=== PATIENT | male | born 1930 | race Caucasian/White ===

== ENCOUNTER → 2016-12-15 | Outpatient (CLI) | payer OTHER ==
[~2016-12-15] MED LIST: ACYCLOVIR 400400 MG PO; ALLOPURINOL 30300 M2; AMARYL4 MG PO; FAMOTIDINE 40 M40 M1 PO; JANUVIA 50 MG T50 M1 PO; LISINOPRIL-HCT1 EAC1; LOPRESSOR50 PO; VYTORIN 10-201 EACH PO
== END ==
LOC: RAD 05:02
DX: R13.10 Dysphagia, unspecified (principal); K44.9 Diaphragmatic hernia without obstruction or gangrene

== ENCOUNTER → 2017-10-19 | Outpatient (CLI) | payer OTHER | LOC: SPEECH 10:29 → RAD 10:29 | DX: R13.10 Dysphagia, unspecified (principal) ==

== ENCOUNTER 2018-10-21 09:04 | Emergency (ER) | payer OTHER ==
[~2018-10-21] VITALS: Ht 172.7 cm; Wt 95.3 kg
[2018-10-21 09:51] LABS: ABSOLUTE NEUTROPHILS 7.6 thou/uL (1.4-8.2); BASOPHILS 1.4 % (0.0-2.0); EOSINOPHILS 2.4 % (0.0-3.0); HEMATOCRIT 36.9 % (42.0-52.0); HEMOGLOBIN 12.6 gm/dL (14.0-18.0); LYMPHOCYTES 11.7 % (24.0-44.0); MCH 30.4 pg (26.0-34.0); MCHC 34.2 g/dL (28.0-37.0); MCV 89.1 fL (80.0-100.0); MONOCYTES 8.9 % (1.0-8.0); PLATELET COUNT 210 thou/uL (150-400); POLYS 75.6 % (36.0-66.0); RBC 4.14 mil/uL (4.50-6.00); RDW 14.5 % (10.5-14.5)
[2018-10-21] MEDS ORDERED: FLOMAX0.4 MG PO (09:57)
[2018-10-21] MEDS ORDERED: PIOGLITAZONE15 MG (09:58)
[2018-10-21] MEDS ORDERED: LIPITOR 20 MG T20 M1 PO (09:58)
[2018-10-21 10:01] LABS: CALCIUM 9.7 mg/dL (8.5-10.1); CREATININE 1.4 mg/dL (0.7-1.3); POTASSIUM 3.8 mmol/L (3.5-5.1)
[2018-10-21 10:07] LABS: ALBUMIN 3.6 g/dL (3.4-5.0); TOTAL BILIRUBIN 0.8 mg/dL (<0.1-1.0); TOTAL PROTEIN 7.2 g/dL (6.4-8.2); URIC ACID* 5.7 mg/dL (2.6-7.2)
[2018-10-21] MEDS ORDERED: INDOMETHACIN 2525 MG PO (11:53)
[2018-10-21] MEDS ORDERED: COLCHICINE0.6 MG PO (11:53)
[2018-10-21] MEDS ORDERED: NORCO 5-325 TA1 EACH PO (11:54)
[2018-10-21 12:09] VITALS: BP 131/55
== END 2018-10-21 12:10 | disposition home or self-care (01) ==
LOC: ER 09:04
PROVIDERS: Physician Assistant
DX: M10.071 Idiopathic gout, right ankle and foot (principal); M10.072 Idiopathic gout, left ankle and foot; E11.9 Type 2 diabetes mellitus without complications; I10 Essential (primary) hypertension; E78.00 Pure hypercholesterolemia, unspecified; E78.5 Hyperlipidemia, unspecified; I25.10 Atherosclerotic heart disease of native coronary artery without angina pectoris; Z90.49 Acquired absence of other specified parts of digestive tract

== ENCOUNTER 2019-09-25 13:55 | Inpatient (IN) | payer OTHER ==
[~2019-09-25] VITALS: Ht 172.7 cm; Wt 96.2 kg
[2019-09-25 13:55] VITALS: BP 210/82
[~2019-09-25 13:55] MED LIST changes: +COLCHICINE0.6 MG PO; +FLOMAX0.4 MG PO; +INDOMETHACIN 2525 MG PO; +LIPITOR 20 MG T20 M1 PO; +NORCO 5-325 TA1 EACH PO; +PIOGLITAZONE15 MG
[2019-09-25 15:06] LABS: ANION GAP 5 mmol/L (7-16); BUN 14 mg/dL (7-18); CALCIUM 9.9 mg/dL (8.5-10.1); CHLORIDE 98 mmol/L (98-107); CO2 32 mmol/L (21-32); CREATININE 1.2 mg/dL (0.7-1.3); GLUCOSE 152 mg/dL (74-106); POTASSIUM 3.8 mmol/L (3.5-5.1); SODIUM 135 mmol/L (136-145)
[2019-09-25 15:17] LABS: ALBUMIN 3.9 g/dL (3.4-5.0); SGOT 18 U/L (15-37); SGPT 24 U/L (30-65); TOTAL BILIRUBIN 0.9 mg/dL (<0.1-1.0); TOTAL PROTEIN 7.8 g/dL (6.4-8.2); TROPONIN-I <0.06 ng/mL (<0.06)
[2019-09-25 15:23] LABS: ABSOLUTE NEUTROPHILS 8.9 thou/uL (1.4-8.2); BASOPHILS 1.5 % (0.0-2.0); HEMATOCRIT 38.9 % (42.0-52.0); HEMOGLOBIN 12.8 gm/dL (14.0-18.0); LYMPHOCYTES 9.2 % (24.0-44.0); MCHC 32.9 g/dL (28.0-37.0); MCV 88.3 fL (80.0-100.0); MONOCYTES 6.8 % (1.0-8.0); PLATELET COUNT 321 thou/uL (150-400); POLYS 80.5 % (36.0-66.0); RBC 4.41 mil/uL (4.50-6.00); RDW 14.6 % (10.5-14.5); WBC 11.1 thou/uL (4.0-11.0)
[2019-09-25 17:25] VITALS: BP 188/71
[2019-09-25 18:20] VITALS: BP 181/74
[2019-09-25 18:58] LABS: URINE BILIRUBIN NEGATIVE (Negative); URINE BLOOD NEGATIVE (Negative); URINE CLARITY CLEAR; URINE COLOR YELLOW; URINE GLUCOSE-RANDOM* NEGATIVE (Negative); URINE KETONES NEGATIVE (Negative); URINE LEUKOCYTES-REFLEX NEGATIVE (Negative); URINE NITRITE-REFLEX NEGATIVE (Negative); URINE PROTEIN (DIPSTICK) NEGATIVE (Negative); URINE UROBILINOGEN 0.2 E.U./dl (0.2-1.0)
[2019-09-25] MEDS ORDERED: PEPCID40 MG PO (19:17)
--- NOTE | 2019-09-25 19:27 | NUR ---
pt admitted from ER for SOB 1810pm, pt is A&OX3, PT is continuing o2 2L/MIN/NC, pt's vs , bs and o2sat are stable, pt has eating dinner, pt's family stay at bedside, pt's UA has sent to LAB .
[2019-09-25 19:30] VITALS: BP 178/71
[2019-09-25 23:40] VITALS: BP 161/72
--- NOTE | 2019-09-26 03:01 | NUR ---
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 BLOOD GLUCOSE 196 PT REFUSED INSULIN STATES " I NEVER TAKE SHOTS JUST PILLS" AT BEDSIDE SLEEPING,. PT SLEEPING UP IN CHAIR THROUGHOUT HOURLY ROUNDS.WILL CONITNUE WITH CURRENT PLAN OF CARE AND REPORT CHANGES.
[2019-09-26 03:45] VITALS: BP 170/71
[2019-09-26 05:24] LABS: HEMATOCRIT 35.9 % (42.0-52.0); HEMOGLOBIN 11.8 gm/dL (14.0-18.0); MCH 29.5 pg (26.0-34.0); MCHC 32.9 g/dL (28.0-37.0); MCV 89.6 fL (80.0-100.0); RBC 4.01 mil/uL (4.50-6.00); RDW 14.8 % (10.5-14.5)
[2019-09-26 05:41] LABS: CALCIUM 9.8 mg/dL (8.5-10.1); CREATININE 1.2 mg/dL (0.7-1.3); MAGNESIUM 1.8 mg/dL (1.8-2.4); POTASSIUM 3.5 mmol/L (3.5-5.1)
[2019-09-26 07:22] VITALS: BP 159/70
--- NOTE | 2019-09-26 08:07 | NUR ---
assessment: CM REVIEWED CHART AND MET WITH PATIENT AT THE BEDSIDE. PTS IS ALSO PRESENT. PT WAS ADMITTED WITH HYPERTENSIVE URGENCY/CHF EXACERBATION. PT REPORTS HE LIVES IN A HOUSE WITH HIS . PT REPORTS HAVING 2 STEPS TO ENTER AND NO STEPS HE USES ONCE INSIDE. PT REPORTS HE IS INDEPENDENT WITH ADLS AND AMBULATION. PT REPORTS HE HAS A GRAB BAR AND SHOWER CHAIR. PT REPORTS HE HAS NOT HAD HH IN THE PAST OR BEEN TO SNF. CM DISCUSSED ROLE. PT STATES HE DOES NOT HAVE OXYGEN AT HOME. PT REPORTS THAT HE DOES NOT ANTICIPATE HAVING ANY NEEDS AT DISCHARGE. PT/OT TO SEE PATIENT AND EVALS ARE PENDING. CM WILL CONTINUE TO FOLLOW TO ASSIST NEEDED.
[2019-09-26 11:24] VITALS: BP 161/65
--- NOTE | 2019-09-26 12:27 | EKG ---
[address] [address] ELECTROCARDIOGRAM REPORT Name: DOMINGO SOSA Room #: 357-P ADM IN M.R.#: [id number] Admission: 09/25/19 Attend Phys: Vivek Santos MD Discharge: Date of : 34 Report #: [id number] THIS REPORT FOR: //name// [facility] ED Test Date: 2019-09-25 Test Time: 14:23:50 Pat Name: DOMINGO SOSA Department: Room: 357 Gender: M Clinical Education Manager: [facility] : [id number] Requested By: Jennifer Yang Order Number: [id number] MD: Itz Salvador Measurements Intervals [place] Rate: 76 P: CT: QRS: 11 QRSD: 89 T: 114 QT: 365 QTc: 411 Interpretive Statements Sinus rhythm Nonspecific ST segment abnormalities Compared to ECG 05/31/2008 09:01:58 Left ventricular hypertrophy no longer present Electronically Signed On 09-26-2019 12:26:51 DENTAL PROSTHETIST by Itz Salvador [email or web address] <ELECTRONICALLY SIGNED> By: Itz Salvador MD 09/26/19 1226 1423 1423 Itz Salvador MD /BASIL
[2019-09-26] MEDS ORDERED: LASIX 40 MG TAB40 MG PO (13:00)
[2019-09-26] MEDS ORDERED: KLOR-CON 1010 MEQ PO (13:00)
[2019-09-26] MEDS ORDERED: ACETAMINOPHEN325 M1 PO (13:00)
[2019-09-26] MEDS ORDERED: BENICAR40 MG PO (13:00)
[2019-09-26] MEDS ORDERED: METOPROLOL SUCC50 MG PO (13:00)
[2019-09-26 15:20] VITALS: BP 155/61
[2019-09-26 15:45] VITALS: BP 155/61
--- NOTE | 2019-09-26 15:46 | NUR ---
ASSUMED CARE OF PT AT APPROX 0700. PT IS ALERT AND ORIENTED X4, MONITORED ON TELE AND ABLE TO MAINTAIN 02 SAT >90 ON RA. DENIES SOA AND PAIN. ASSESSMENT CHARTED. RECIEVED ORDERS FOR DC. COMPLETED DC IN COMPUTER. PT WAITING ON FAMILY TO ARRIVE FOR DC AND PATIENT WISHES I WAIT FOR DC EDUCATION AND INSTRUCTIONS UNTIL AND DAUGHTER ARRIVE. WILL CONTINUE TO MONITOR.
== END 2019-09-26 16:47 | disposition home or self-care (01) | DRG 291 ==
LOC: ER 13:55 → EROBS 16:08 → 3W 16:08 → ENTRNSPT 09-26 16:43 → 3W 09-26 16:47
PROVIDERS: Nurse Practitioner Family; ADMIT Internal Medicine
DX: I13.0 Hypertensive heart and chronic kidney disease with heart failure and stage 1 through stage 4 chronic kidney disease, or unspecified chronic kidney disease (principal); I50.33 Acute on chronic diastolic (congestive) heart failure; I16.1 Hypertensive emergency; I25.10 Atherosclerotic heart disease of native coronary artery without angina pectoris; R54 Age-related physical debility; E78.5 Hyperlipidemia, unspecified; E11.9 Type 2 diabetes mellitus without complications; E78.00 Pure hypercholesterolemia, unspecified; I16.0 Hypertensive urgency; N18.9 Chronic kidney disease, unspecified; E11.22 Type 2 diabetes mellitus with diabetic chronic kidney disease; E66.9 Obesity, unspecified; T46.4X5A Adverse effect of angiotensin-converting-enzyme inhibitors, initial encounter; T50.2X5A Adverse effect of carbonic-anhydrase inhibitors, benzothiadiazides and other diuretics, initial encounter; Z68.32 Body mass index [BMI] 32.0-32.9, adult; Z95.1 Presence of aortocoronary bypass graft; Z90.49 Acquired absence of other specified parts of digestive tract; Z79.899 Other long term (current) drug therapy; Y92.89 Other specified places as the place of occurrence of the external cause
CPT/HCPCS: 10879

== ENCOUNTER → 2020-04-01 | Outpatient (CLI) | payer OTHER ==
[~2020-04-01] MED LIST changes: +ACETAMINOPHEN325 M1 PO; +BENICAR40 MG PO; +KLOR-CON 1010 MEQ PO; +LASIX 40 MG TAB40 MG PO; +METOPROLOL SUCC50 MG PO; +PEPCID40 MG PO
== END ==
LOC: SJCVC 10:31
DX: I49.9 Cardiac arrhythmia, unspecified (principal); R94.31 Abnormal electrocardiogram [ECG] [EKG]; I25.810 Atherosclerosis of coronary artery bypass graft(s) without angina pectoris; I11.0 Hypertensive heart disease with heart failure; I50.32 Chronic diastolic (congestive) heart failure; E78.5 Hyperlipidemia, unspecified; N28.9 Disorder of kidney and ureter, unspecified; I65.23 Occlusion and stenosis of bilateral carotid arteries; E11.9 Type 2 diabetes mellitus without complications; K21.9 Gastro-esophageal reflux disease without esophagitis; Z79.899 Other long term (current) drug therapy; Z95.1 Presence of aortocoronary bypass graft; Z82.49 Family history of ischemic heart disease and other diseases of the circulatory system

== ENCOUNTER → 2020-09-08 | Outpatient (CLI) | payer OTHER | LOC: SJCVC 12:59 | PROVIDERS: ATTEND Internal Medicine | DX: I25.10 Atherosclerotic heart disease of native coronary artery without angina pectoris (principal); E11.22 Type 2 diabetes mellitus with diabetic chronic kidney disease; I11.0 Hypertensive heart disease with heart failure; I50.32 Chronic diastolic (congestive) heart failure; E78.5 Hyperlipidemia, unspecified; N28.9 Disorder of kidney and ureter, unspecified; I48.91 Unspecified atrial fibrillation; Z95.1 Presence of aortocoronary bypass graft ==